=== PATIENT | male | born 1995 | race Caucasian/White ===

== ENCOUNTER → 2019-08-28 | Outpatient (CLI) | payer BC, OTHER ==
--- NOTE | 2019-08-28 11:43 | CT ---
EXAMINATION TYPE: CT knee RT wo con DATE OF EXAM: 08/28/2019 COMPARISON: 09/17/2014 HISTORY: Right sided knee pain with prior surgeries. Injury [address] DLP: 342 mGycm Automated exposure control for dose reduction was used. FINDINGS: There is small amount of fluid in the suprapatellar bursa. There is narrowing of the knee joint bilat erally greater medially. There is a defect involving the articular surface of the lateral femoral con dyle suspicious for osteochondritis. There is no acute fracture. There is subcutaneous edema anterior to the patella and within the infrapatellar bursa IMPRESSION: 1. No acute fracture. 2. There is a deformity articular surface of the lateral femur suspicious for osteochondritis. This w as also noted on the prior exam but appears to progressed. No free fragments seen. Correlate for oste ochondritis dissecans. Follow-up MRI recommended. 3. Nonspecific Edema within Hoffa's fat pad
== END | disposition home or self-care (01) ==
LOC: RADCTMAIN 10:55
PROVIDERS: ATTEND Orthopaedic Surgery
DX: M21.961 Unspecified acquired deformity of right lower leg (principal); R60.0 Localized edema